=== PATIENT | female | born 1955 | race Caucasian/White ===

== ENCOUNTER 2021-04-27 12:34 | Emergency (ER) | payer OTHER, SELFPAY ==
--- NOTE | 2021-04-27 12:30 | RT.EKG_ITS ---
APPROVED REPORT Exam: Resting ECG Reason for Exam: chest pain Patient Location: E HR:89 bpm ECG Measurements Heart Rate 89 AXIS MI 129 P 28 QRSd 93 QRS 7 QT 392 T 30 QTc 477 Conclusion Sinus rhythm...normal P axis, V-rate 60- 99 Inferolateral infarct, old...Q >40mS, inf-lat leads
[2021-04-27 12:49] VITALS: BP 146/68; PULSE 84; RESP 16; TEMP 36.6; O2SAT 100
--- NOTE | 2021-04-27 13:10 | DI.RAD_ITS ---
Exam(s) XR PORTABLE CHEST AP EXAM: XR PORTABLE CHEST AP CLINICAL HISTORY: nausea TECHNIQUE: 2D digital imaging was performed. COMPARISON: No exams were available for comparison FINDINGS: LUNGS: Clear. No pleural abnormality seen. HEART: Normal. MEDIASTINUM: Normal. BONES: Unremarkable for age. IMPRESSION: No acute pulmonary findings. DATA REPOSITORY: RADIATION DOSE DELIVERED:
--- NOTE | 2021-04-27 13:15 | ED.GENADUL_ITS ---
Discharge Plan Disposition Patient Disposition: HOME Condition: Stable Discharge Details Clinical Impression: Chest pain Primary Care Provider: Lucia Terry ED Provider: Bertha Mane Home Meds and New Rx's Prescriptions: Continued lisinopril 40 mg Tablet 40 mg PO DAILY RF: 0 methimazole 5 mg Tablet 5 mg PO DAILY RF: 0 hydrochlorothiazide 25 mg Tablet 25 mg PO DAILY RF: 0 fluoxetine 20 mg Capsule 20 mg PO DAILY RF: 0 Discharge Instructions Instructions: Chest Pain (ED) Additional Instructions: Please follow-up with your primary care physician on Thursday Do not engage in any exercise activities until you see your doctor Recommend outpatient stress test at the discretion of your primary care doctor Please return earlier or be evaluated at your closest emergency room should you develop recurrence of chest pain, shortness of breath, or nausea Discharge Data Discharge Date/Time-TO BE ENTERED AT DEPARTURE: 04/27/21 17:49 Medical Decision Making <ASHLEIGH Cuenca - Last Filed: 04/28/21 10:29> 65-year-old female, past medical history that includes hypertension, presenting for brief moment of diaphoresis, chest sensation described as pressure, breathlessness, nausea, and right hand tingling, now only with nausea. Clinically she appears well, nontoxic, hemodynamically stable. Differential is broad, wide, includes but not excluded to ACS, PE, dissection, pneumonia, anxiety, paresthesias, etc. Will obtain IV access, initiate cardiac work-up including D-dimer, chest x-ray, give a full dose aspirin and 4 IV Zofran. Vera arias is comfortable this plan Upon reevaluation patient is asymptomatic. Initial laboratory values are unremarkable for obvious emergent process. Chest x-ray negative. D-dimer is unremarkable, will not pursue CTA. Given her presentation, unclear if she will require admission, I did obtain a Covid swab. This is still pending. Discussed initial work-up with patient. Heart score of 3. Discussed admission for further cardiac evaluation versus obtaining delta troponin and EKG and further observation. Patient is asymptomatic and states that she would prefer to go home if at all possible. She does understand that a negative delta troponin and EKG does not exclude any potential cardiac issue and she may need to return to the ER for new or worsening symptoms otherwise contact her primary care provider on Thursday to discuss her symptoms and potential need for outpatient stress test and/or echocardiogram. At time of signout, patient is asymptomatic awaiting delta troponin and EKG. Co vid swab is negative. She will now be allowed a visitor Imaging Data Radiologic Study: Attestation: I personally reviewed and interpreted this imaging study as follows: Imaging: X-Ray Radiologist's impression: PROCEDURE INFORMATION: Exam: XR Chest Exam date and time: 04/27/2021 2:10 PM Age: 65 years old Clinical indication: Other: [place] TECHNIQUE: Imaging protocol: XR of the chest. Views: 1 view. COMPARISON: No relevant prior studies available. FINDINGS: Lungs: Unremarkable. No consolidation. Pleural spaces: Unremarkable. No pleural effusion. No pneumothorax. Heart/Mediastinum: Unremarkable. No cardiomegaly. Bones/joints: Unremarkable. IMPRESSION: No acute findings. Lab Data Lab results reviewed: Yes I reviewed the patient's lab results. Labs: Laboratory Tests Range/Units 04/27/21 04/27/21 04/27/21 13:10 13:10 13:20 WBC (4.4-10.8) 10^3/uL 8.27 RBC (3.93-5.22) 10^6/uL 5.38 H Hgb (11.2-15.7) g/dL 15.2 Hct (36.0-46.0) % 46.9 H MCV (80-95) fL 87.2 MCH (27.0-33.0) pg 28.3 MCHC (32.0-36.0) % 32.4 RDW (11.7-14.6) % 13.6 Plt Count (130-400) 10^3/uL 340 MPV (8.0-11.0) fL 9.7 Immature Gran % 0.4 Neutrophils % 66.9 Lymphocytes % 24.5 Monocytes % 6.2 Eosinophils % 1.5 Basophils % 0.5 Nucleated RBC % % 0 Absolute Neutrophils (1.2-6.7) 10^3/uL 5.54 Absolute Lymphocytes (1.2-3.4) 10^3/uL 2.03 Absolute Monocytes (0.1-0.8) 10^3/uL 0.51 Absolute Eosinophils (0.0-0.7) 10^3/uL 0.12 Absolute Basophils (0.0-0.2) 10^3/uL 0.04 D-Dimer (<500) ng/mlFEU Sodium (136-145) mmol/L 137 Potassium (3.5-5.1) mmol/L 3.5 Chloride (98-107) mmol/L 101 Carbon Dioxide (21.0-32.0) mmol/L 27.8 Anion Gap (3-11) mmol/L 8.2 BUN (7-18) mg/dL 12 Creatinine (0.55-1.02) mg/dL 0.7 Estimated GFR/1.73 m2 (mL/min/1.73m2) >= 60.00 Glucose (74-106) mg/dL 147 H Calcium (8.5-10.1) mg/dL 9.2 Magnesium (1.8-2.4) mg/dL 2.1 Total Bilirubin (0.2-1.0) mg/dL 0.5 AST (15-37) U/L 18 ALT (14-59) U/L 28 Alkaline Phosphatase (46-116) U/L 79 Troponin I (<0.06) ng/mL < 0.05 Total Protein (6.4-8.2) g/dL 8.0 Albumin (3.4-5.0) g/dL 4.0 COVID-19 Source SARS-CoV-2 (PCR) (Negative) Range/Units 04/27/21 04/27/21 04/27/21 14:15 14:37 16:15 WBC (4.4-10.8) 10^3/uL RBC (3.93-5.22) 10^6/uL Hgb (11.2-15.7) g/dL Hct (36.0-46.0) % MCV (80-95) fL MCH (27.0-33.0) pg MCHC (32.0-36.0) % RDW (11.7-14.6) % Plt Count (130-400) 10^3/uL MPV (8.0-11.0) fL Immature Gran % Neutrophils % Lymphocytes % Monocytes % Eosinophils % Basophils % Nucleated RBC % % Absolute Neutrophils (1.2-6.7) 10^3/uL Absolute Lymphocytes (1.2-3.4) 10^3/uL Absolute Monocytes (0.1-0.8) 10^3/uL Absolute Eosinophils (0.0-0.7) 10^3/uL Absolute Basophils (0.0-0.2) 10^3/uL D-Dimer (<500) ng/mlFEU 288 Sodium (136-145) mmol/L Potassium (3.5-5.1) mmol/L Chloride (98-107) mmol/L Carbon Dioxide (21.0-32.0) mmol/L Anion Gap (3-11) mmol/L BUN (7-18) mg/dL Creatinine (0.55-1.02) mg/dL Estimated GFR/1.73 m2 (mL/min/1.73m2) Glucose (74-106) mg/dL Calcium (8.5-10.1) mg/dL Magnesium (1.8-2.4) mg/dL Total Bilirubin (0.2-1.0) mg/dL AST (15-37) U/L ALT (14-59) U/L Alkaline Phosphatase (46-116) U/L Troponin I (<0.06) ng/mL < 0.05 Total Protein (6.4-8.2) g/dL Albumin (3.4-5.0) g/dL COVID-19 Source Nasal/Nares SARS-CoV-2 (PCR) (Negative) Negative ECG Data Attestation: I personally reviewed and interpreted this ECG (s) as follows: Interpretation: Please see official report by Dr. Dominguez. Sinus rhythm, ventricular rate of 89. No STEMI <ASHLEIGH Mackenzie - Last Filed: 04/27/21 20:01> Transition of care from Isai Parker physician program services assistant at 1600 Pending repeat troponin and evaluation, patient is pain-free and feels an symptomatic improvement, while she is higher risk with a heart score of 3, patient adamantly denies admission at this time and she is aware that 2 troponins and EKG are not definitive for excluding angina or coronary artery disease, she is alert, oriented, of decisional capacity, a friend is in the room with patient during our discussion Her repeat troponin is negative and patient request discharge home at this time She is aware that she should call her doctor on Thursday for repeat evaluation and likely should have a repeat stress test as her last was approximately 8 years ago She discharged home in stable condition with stable vitals, alert, oriented, of decisional capacity HPI <ASHLEIGH Cuenca - Last Filed: 04/28/21 10:29> General Mode of arrival: ambulatory . Date/Time Provider Initiated Documentation: 04/27/21 13:09 . Limitations to Documentation: no limitations . Information obtained by: patient . HPI Narrative: This is a 65-year-old female, history of hypertension, presents to the ER for evaluation of diaphoresis, nausea, right hand paresthesias that began just prior to arrival while sitting in a car as a passenger. Patient states that she briefly felt a sensation in her chest pressure or breathlessness but denies any true chest pain. All of the symptoms have resolved completely except that now she has mild nausea but no vomiting. Patient denies recent illness or trauma. Denies headache, visual changes, neck pain, cough, abdominal pain, back pain, any pain that radiates into her neck, shoulders, upper extremities, back. She denies change in appetite, sleep habits, bowel or bladder habits. Denies pain or swelling the legs, numbness, tingling, weakness. Patient denies history of DVT, PE, cardiac disease. She states that she had a stress test likely 10 years ago or so, was unremarkable. Patient has no additional concerns or complaints at this time Related Data Home Medications Medication Instructions Recorded Confirmed fluoxetine 20 mg PO DAILY 04/27/21 04/27/21 hydrochlorothiazide 25 mg PO DAILY 04/27/21 04/27/21 lisinopril 40 mg PO DAILY 04/27/21 04/27/21 methimazole 5 mg PO DAILY 04/27/21 04/27/21 Allergies Allergy/AdvReac Type Severity Reaction Status Date / Time No Known Allergies Allergy Unverified 04/27/21 13:11 General Stated Complaint: Chest Pain TEREZA: 2 <ASHLEIGH Mackenzie - Last Filed: 04/27/21 20:01> General Mode of arrival: ambulatory . Limitations to Documentation: no limitations . Information obtained by: patient . Review of Systems <ASHLEIGH Cuenca - Last Filed: 04/28/21 10:29> Constitutional Constitutional: Denies fatigue, Denies fever(s), Denies headache(s) and Denies weakness ENT Ears, Nose, Mouth, and Throat: Denies headache(s) and Denies neck pain Cardiovascular Cardiovascular: Reports chest pain (Pressure, resolved) and Reports dyspnea (Breathlessness, resolved) Respiratory Respiratory: Denies cough Gastrointestinal Gastrointestinal: Denies abdominal pain, Reports nausea and Denies vomiting Genitourinary Genitourinary: Denies dysuria Musculoskeletal Musculoskeletal: Denies back pain, Denies neck pain, Denies numbness and Denies tingling Integumentary/Breasts Skin/Breast: Denies rash Neurologic Neurologic: Denies headache(s), Denies numbness, Denies tingling and Denies weakness Endocrine Endocrine: Denies fatigue Hematologic/Lymphatic Hematologic/Lymphatic: Denies easy bleeding and Denies easy bruising PFSH <ASHLEIGH Cuenca - Last Filed: 04/28/21 10:29> Social History Smoking/Tobacco Use Status: Never Smoking risk assessment performed?: Yes Alcohol Intake: never Substance use type: does not use Do you feel safe at home: No Do you feel safe in your relationship?: No Exam <ASHLEIGH Cuenca - Last Filed: 04/28/21 10:29> Const General: cooperative, healthy appearing, comfortable and no acute distress Orientation: alert, awake and oriented x3 HENMT Head: normal to inspection, normocephalic and atraumatic Face and sinus: normal facial exam Mouth: moist mucous membranes Eyes General: appearance normal, both eyes and all related structures Conjunctivae: conjunctivae normal Neck Neck: normal visual inspection, full ROM, no meningeal signs, trachea midline, supple and nontender Chest Chest: normal inspection of the chest Resp Effort & Inspection: normal respiratory effort and able to speak in complete sentences Auscultation: clear to auscultation bilaterally Cardio Rate: regular rate Rhythm: regular rhythm GI Inspection: normal to inspection Palpation: soft, not firm, no guarding, no pulsatile masses and nontender Auscultation: normal bowel sounds Back/Spine/Pelvis Back: No back tenderness Skin General skin exam: no rashes or lesions noted Neuro General: patient alert, patient awake, moves all extremities and no focal motor deficits Cognition: normal cognition Speech: speech normal Gait: normal gait Motor: muscle tone normal throughout Sensory Exam: no sensory deficits noted Extrem General: normal to inspection, full ROM, capillary refill normal, no pedal edema and no calf tenderness Psych Appearance: grossly normal Mental Status: mental status grossly normal Course <ASHLEIGH Cuenca - Last Filed: 04/28/21 10:29> Vital Signs Vital signs: Vital Signs Temperature 36.6 C 04/27/21 12:49 Pulse 84 04/27/21 12:49 Respiratory Rate 16 04/27/21 12:49 Blood Pressure 146/68 H 04/27/21 12:49 Pulse Oximetry 100 04/27/21 12:49 Temperature 36.6 C 04/27/21 12:49 Temperature Source Temporal Artery Scan 04/27/21 12:49 Pulse 84 04/27/21 12:49 Respiratory Rate 16 04/27/21 12:49 Blood Pressure 146/68 H 04/27/21 12:49 Blood Pressure Position Sitting 04/27/21 12:49 Pulse Oximetry 100 04/27/21 12:49 Oxygen Delivery Method Room Air 04/27/21 12:49 Oxygen Flow Rate 0 04/27/21 12:49 Sign Out <ASHLEIGH Cuenca - Last Filed: 04/28/21 10:29> Sign Out Data: Sign Out Comment: Developed nausea, right hand tingling, chest pressure, asymptomatic now. Awaiting repeat troponin and EKG, if unremarkable patient would prefer to be discharged home and discuss further cardiac work-up with her primary care provider Last updated by Isai Parker PA at 04/27/21 15:54
[2021-04-27 13:19] LABS: Abs Immature Grans 0.03 10^3/uL (0.0-0.06); Absolute Basophil Count 0.04 10^3/uL (0.0-0.2); Absolute Eosinophil Count 0.12 10^3/uL (0.0-0.7); Absolute Lymphocyte Count 2.03 10^3/uL (1.2-3.4); Absolute Monocyte Count 0.51 10^3/uL (0.1-0.8); Absolute Neutrophil Count 5.54 10^3/uL (1.2-6.7); Basophils % 0.5; Eosinophils % 1.5; HCT 46.9 % (36.0-46.0); HGB 15.2 g/dL (11.2-15.7); Immature Grans % 0.4; Lymphocytes % 24.5; MCH 28.3 pg (27.0-33.0); MCHC 32.4 % (32.0-36.0); MCV 87.2 fL (80-95); MPV 9.7 fL (8.0-11.0); Monocytes % 6.2; Neutrophils % 66.9; Nucleated RBC 0 %; Platelet Count 340 10^3/uL (130-400); RBC 5.38 10^6/uL (3.93-5.22); RDW 13.6 % (11.7-14.6); RDW-SD 43.5 fL; WBC 8.27 10^3/uL (4.4-10.8)
[2021-04-27] MEDS: Aspirin 81 MG CHEW 324 MG CH (13:19)
[2021-04-27] MEDS: Ondansetron 4 MG/2 ML VIAL IVP (13:19)
[2021-04-27 13:45] LABS: ALT 28 U/L (14-59); AST 18 U/L (15-37); Alkaline Phosphatase 79 U/L (46-116); Anion Gap 8.2 mmol/L (3-11); BUN 12 mg/dL (7-18); Bilirubin, Total 0.5 mg/dL (0.2-1.0); CO2 27.8 mmol/L (21.0-32.0); CREATININE 0.7 mg/dL (0.55-1.02); Calcium 9.2 mg/dL (8.5-10.1); Chloride 101 mmol/L (98-107); Glucose 147 mg/dL (74-106); Potassium 3.5 mmol/L (3.5-5.1); Sodium 137 mmol/L (136-145); Troponin I < 0.05 ng/mL (<0.06)
[2021-04-27 14:29] LABS: Magnesium 2.1 mg/dL (1.8-2.4)
[2021-04-27 14:34] LABS: Source Nasal/Nares
--- NOTE | 2021-04-27 15:00 | DI.VRAD_ITS ---
PROCEDURE INFORMATION: Exam: XR Chest Exam date and time: 04/27/2021 2:10 PM Age: 65 years old Clinical indication: Other: [place] TECHNIQUE: Imaging protocol: XR of the chest. Views: 1 view. COMPARISON: No relevant prior studies available. FINDINGS: Lungs: Unremarkable. No consolidation. Pleural spaces: Unremarkable. No pleural effusion. No pneumothorax. Heart/Mediastinum: Unremarkable. No cardiomegaly. Bones/joints: Unremarkable. IMPRESSION: No acute findings. Dictated and Authenticated by: Jameel Loya MD. Ordering:ENDY Alex MD
[2021-04-27 15:10] LABS: D-Dimer 288 ng/mlFEU (<500)
[2021-04-27 15:24] LABS: COVID-19 PCR Negative (Negative)
--- NOTE | 2021-04-27 15:45 | RT.EKG_ITS ---
APPROVED REPORT Exam: Resting ECG Reason for Exam: Nausea, chest pressure Patient Location: E HR:78 bpm ECG Measurements Heart Rate 78 AXIS GA 132 P 30 QRSd 90 QRS 8 QT 388 T 22 QTc 442 Conclusion Sinus rhythm...normal P axis, V-rate 60- 99 Lateral infarct, age indeterminate...Q>35mS, T neg, V5-V6 I aVL
[2021-04-27 16:45] LABS: Troponin I < 0.05 ng/mL (<0.06)
[2021-04-27 17:40] VITALS: BP 146/68; PULSE 84; RESP 16; TEMP 36.6; O2SAT 100
== END 2021-04-27 17:49 | disposition home or self-care (01) ==
PROVIDERS: Physician Assistant; Emergency Provider Physician Assistant; PCP Family Medicine
DX: R07.9 Chest pain, unspecified (principal); Z20.822 Contact with and (suspected) exposure to COVID-19; R11.0 Nausea; R20.2 Paresthesia of skin
CPT/HCPCS: 36415; 80053; 87635; 93005; 96374; 99284; 71045; 83735; 84484; 85025; 85379; 93010; J2405